=== PATIENT | female | born 1960 | race Caucasian/White ===

== ENCOUNTER → 2019-02-27 | Outpatient (CLI) | payer OTHER ==
[~2019-02-27] MED LIST: CELEBREX 200 M200 MG; CYCLOBENZAPRINE; KEFLEX500 MG PO; METFORMIN; MULTIVITAMINS; NORCO 5-325 TA1 EACH PO; TESSALON PERLE100 MG PO; VENTOLIN HFA 1818 GM; ZYRTEC10 M2
== END ==
LOC: M.RAD 16:38
DX: J98.4 Other disorders of lung (principal); J92.9 Pleural plaque without asbestos; R76.11 Nonspecific reaction to tuberculin skin test without active tuberculosis